=== PATIENT | female | born 1940 | race Caucasian/White ===

== ENCOUNTER 2019-06-24 19:57 | Emergency (ER) | payer MEDICARE ==
[~2019-06-24] VITALS: Ht 147.3 cm; Wt 48.1 kg
[~2019-06-24 19:57] MED LIST: ACETAMINOPHEN650 M5 PO; ALBUTEROL INH INH; AVELOX 400 MG400 MG PO; BUPROPION PO; MUCINEX D TABL1 EAC1 PO; MUCINEX600 MG PO; SPIRIVA INH; [UNRECOGNIZED DRUG - OTHER] MM
[2019-06-24] MEDS ORDERED: VIBRAMYCIN 100100 MG PO (20:32)
[2019-06-24 20:56] VITALS: BP 146/86
== END 2019-06-24 20:56 | disposition home or self-care (01) ==
LOC: ER 19:57
DX: L03.114 Cellulitis of left upper limb (principal); J44.9 Chronic obstructive pulmonary disease, unspecified; Z79.899 Other long term (current) drug therapy; Z79.2 Long term (current) use of antibiotics; Z88.1 Allergy status to other antibiotic agents; Z90.2 Acquired absence of lung [part of]; Z85.3 Personal history of malignant neoplasm of breast; Z90.11 Acquired absence of right breast and nipple; Z98.51 Tubal ligation status; Z87.891 Personal history of nicotine dependence